=== PATIENT | female | born 1965 | race Caucasian/White ===

== ENCOUNTER 2016-11-07 08:54 | Emergency (ER) | payer MEDICARE ==
[2016-11-07 10:22] LABS: HEMOGLOBIN 10.5 gm/dl (12.3-15.3); RED BLOOD COUNT 3.8 M/UL (4.00-5.10)
[2016-11-07 10:26] LABS: WHITE BLOOD COUNT 45.6 K/UL (4.5-11.0)
[2016-11-07 10:33] LABS: BUN/CREATININE RATIO 11 (0-10)
== END 2016-11-07 16:35 | disposition home or self-care (01) ==
LOC: ER1 08:54
PROVIDERS: Physician Assistant
DX: M10.9 Gout, unspecified (principal); R21 Rash and other nonspecific skin eruption; R00.0 Tachycardia, unspecified; D72.829 Elevated white blood cell count, unspecified; Z88.5 Allergy status to narcotic agent
CPT/HCPCS: 36415; 71010; 73130; 80053; 82550; 82553; 83605; 83874; 84484; 84550; 85007; 85027; 87040; 93005; 93971; 96361; 96374; 96375; 99285; J2060; J2930; J7030; J7050; Q9963